=== PATIENT | female | born 1980 | race Caucasian/White ===

== ENCOUNTER 2016-10-17 13:00 | Emergency (ER) | payer SELFPAY ==
[~2016-10-17] VITALS: Ht 154.9 cm; Wt 70.5 kg
[2016-10-17 21:33] VITALS: Ht 154.9 cm; Wt 70.5 kg
[2016-10-17] MEDS ORDERED: KETOROLAC 30 MG INJ ONE (22:51)
--- NOTE | 2016-10-18 08:58 | RADRPT ---
PROCEDURE: CT Brain without contrast. CLINICAL INDICATION: Headache. TECHNIQUE: A CT of the brain was performed utilizing axial sections from the skull base through th e vertex without contrast. Multiplanar re-formations were generated. Images were reviewed on a high- resolution PACS workstation. CTDIvol: 44.19 mGy. DLP: 720.23 mGy-cm. One or more of the following dose reduction techniques were used: - Automated exposure control. - Adjustment of the mA and/or kV according to patient size. - Use of iterative reconstruction technique. COMPARISON: None available FINDINGS: There is no cerebral volume loss. No hydrocephalus is seen. There is no mass effect. No acute intrac ranial hemorrhage is identified. There is no extra-axial collection. Ernandez-white matter differentiati on is preserved. There is no significant mucosal disease in the paranasal sinuses. The visualized mastoid air cells are clear. The ossesous structures are unremarkable. The extracranial soft tissues are unremarkable. IMPRESSION: 1. No acute intracranial pathology. RPTAT: HTAR .Christian Owens MD, Date Time Electronically viewed and signed by .Christian Owens MD, on 10/18/2016 00:27 .R/
--- NOTE | 2016-10-26 16:31 | ERD ---
ER Documentation Chief Complaint Date/Time DATE: 10/26/16 TIME: 16:28 Chief Complaint neck pain for 2 days, face is symmetrical, tongue is midline HPI This patient is a 36-year-old female presenting to the emergency department with complaints of not being able to the left side of her face for 1 day. She reports numbness and tingling. She is also had a headache for the past 3 days. She has never had these symptoms in the past. She denies weakness on one side of body. Denies recent illness. Able to move the side of her face and smile and raise her eyebrows well. She denies confusion, dizziness, chest pain , shortness of breath, or other symptoms currently. ROS All systems reviewed and are negative except as per history of present illness. Allergies Allergies: Coded Allergies: No Known Allergy (Unverified , 10/17/16) Physical Exam Physical Exam Const: Toxic, well-appearing female in no acute distress. Head: Atraumatic Eyes: Normal Conjunctiva ENT: Normal External Ears, Nose and Mouth. Neck: Full range of motion..~ No meningismus. Resp: Clear to auscultation bilaterally Cardio: Regular rate and rhythm, no murmurs Abd: Soft, non tender, non distended. Normal bowel sounds Skin: No petechiae or rashes Back: No midline or flank tenderness Ext: No cyanosis, or edema Neur: Awake and alert. Subjective decreased sensation noted to the left side of the face. The patient is able to smile and raise her eyebrows normally. Cranial nerves intact. Strength and sensation intact in bilateral upper and lower extremity's. Negative pronator drift. Negative Romberg sign. Normal gait. Psych: Normal Mood and Affect Results 24 hrs Current Medications Medications (Trade) Dose Ordered Sig/Adwoa Route PRN Reason Start Time Stop Time Status Last Admin Dose Admin Ketorolac Tromethamine (Toradol) 30 mg STK-MED ONCE .ROUTE 10/17/16 22:51 10/18/16 08:51 DC Procedures/MDM 36-year-old female presenting to the emergency department with complaints of tingling feeling in the left side of face. Neurological examination was unremarkable, however the patient did report subjective decreased feeling in the left side of her face. There is no physical examination findings consistent with acute stroke. CT brain showed no acute findings and was interpreted by the radiologist. Differential diagnosis considered were Torres's palsy, TIA, CVA, tension headache, and others I had overall low suspicion for Torres's palsy because the patient had full movement of the left side of her face. Gums may be related to anxiety, or tension headache. The patient was treated in the department and she was feeling improved on reevaluation. The patient was stable for discharge after negative CT brain and she was advised to return immediately for any new or worsening symptoms. Close follow-up with primary care physician was advised. PROCEDURE: CT Brain without contrast. CLINICAL INDICATION: Headache. TECHNIQUE: A CT of the brain was performed utilizing axial sections from the skull base through the vertex without contrast. Multiplanar re-formations were generated. Images were reviewed on a high-resolution PACS workstation. CTDIvol: 44.19 mGy. DLP: 720.23 mGy-cm. One or more of the following dose reduction techniques were used: - Automated exposure control. - Adjustment of the mA and/or kV according to patient size. - Use of iterative reconstruction technique. COMPARISON: None available FINDINGS: There is no cerebral volume loss. No hydrocephalus is seen. There is no mass effect. No acute intracranial hemorrhage is identified. There is no extra-axial collection. Ernandez-white matter differentiation is preserved. There is no significant mucosal disease in the paranasal sinuses. The visualized mastoid air cells are clear. The ossesous structures are unremarkable. The extracranial soft tissues are unremarkable. IMPRESSION: 1. No acute intracranial pathology. RPTAT: HTAR .Christian Owens MD, MD Date Time Electronically viewed and signed by .Christian Owens MD, on 10/18/2016 00:27 Departure Diagnosis: Primary Impression: Headache Condition: Fair CAROLINE LUIS PA-C Oct 26, 2016 16:31
== END 2016-10-18 02:05 | disposition home or self-care (01) ==
LOC: FTE 22:00 → E/R 10-18 02:05
DX: R51 Headache (principal)
CPT/HCPCS: 70450; 99284; J1885